=== PATIENT | male | born 1990 | race Caucasian/White ===

== ENCOUNTER 2024-09-23 08:07 | Emergency (ER) | payer SELFPAY ==
[~2024-09-23] VITALS: Ht 180.3 cm; Wt 91.2 kg
[2024-09-23] MEDS: SODIUM CHLORIDE 0.9% 1000ML 1,000 ML IV STA (08:40)
[2024-09-23] MEDS: METOPROLOL TARTRATE 25 MG TAB PO ONE (08:47)
[2024-09-23] MEDS: ASPIRIN 81 MG CHEW TAB PO STA (08:47)
[2024-09-23 08:50] LABS: BASOPHILS % 0.3 % (0.0-1.0); EOSINOPHILS % 0.7 % (0.0-6.0); HEMATOCRIT 44.7 % (38.2-49.6); HEMOGLOBIN 14.7 g/dL (14.0-18.0); LYMPHOCYTES # (AUTO) 2.6 (1.0-3.2); LYMPHOCYTES % 44.1 % (18.0-39.1); MEAN CORPUSCULAR HEMOGLOBIN 32.5 pg (28-32); MEAN CORPUSCULAR HGB CONC 32.9 g/dL (31-35); MEAN CORPUSCULAR VOLUME 98.9 fL (81-99); MONOCYTES # (AUTO) 0.5 (0.2-0.8); MONOCYTES % 8.6 % (4.4-11.3); NEUTROPHILS # (AUTO) 2.7 (2.1-6.9); NEUTROPHILS % 46.1 % (38.7-80.0); PLATELET COUNT 258 x10e3/uL (140-360); RED BLOOD COUNT 4.52 x10e6/uL (4.3-5.7); WHITE BLOOD COUNT 5.94 x10e3/uL (4.8-10.8)
[2024-09-23 09:00] LABS: INR 0.9; PROTHROMBIN TIME 12.7 seconds (11.9-14.5)
[2024-09-23 09:01] LABS: AMPHETAMINES SCREEN,URINE NEGATIVE (NEGATIVE); BENZODIAZEPINES SCREEN,URINE NEGATIVE (NEGATIVE); CANNABINOIDS SCREEN,URINE POSITIVE (NEGATIVE); COCAINE SCREEN,URINE NEGATIVE (NEGATIVE); METHADONE SCREEN, URINE NEGATIVE (NEGATIVE); OPIATES SCREEN,URINE NEGATIVE (NEGATIVE); PHENCYCLIDINE SCREEN,URINE NEGATIVE (NEGATIVE)
[2024-09-23 09:08] LABS: ALBUMIN 4.2 g/dL (3.5-5.0); ALBUMIN/GLOBULIN RATIO 1.6 (0.8-2.0); BILIRUBIN,TOTAL 0.6 mg/dL (0.2-1.2); CALCIUM 9.1 mg/dL (8.4-10.2); CREATININE, SERUM 1.02 mg/dL (0.72-1.25); MAGNESIUM 1.7 MG/DL (1.3-2.1); TOTAL PROTEIN 6.9 g/dL (6.5-8.1)
[2024-09-23 09:28] LABS: THYROID STIMULATING HORMONE 1.477 uIU/mL (0.350-4.940); TROPONIN I 0.01 ng/mL (0-0.300)
[2024-09-23 09:30] VITALS: BP 129/85; PULSE 88; RESP 16
[2024-09-23 10:17] VITALS: PULSE 88; RESP 20; TEMP 97.8; O2SAT 97
== END 2024-09-23 10:23 | disposition home or self-care (01) ==
LOC: ER 08:09
DX: R00.2 Palpitations (principal); I48.91 Unspecified atrial fibrillation; F41.9 Anxiety disorder, unspecified; F31.9 Bipolar disorder, unspecified; R94.31 Abnormal electrocardiogram [ECG] [EKG]; F17.210 Nicotine dependence, cigarettes, uncomplicated
CPT/HCPCS: 36415; 71045; 80053; 80307; 80320; 82550; 83735; 83880; 84443; 84484; 85025; 85610; 85730; 93005; 99284; J7030